=== PATIENT | female | born 1955 | race Caucasian/White ===

== ENCOUNTER 2018-04-19 09:24 | Day surgery (SDC) ==
[2018-04-19] MEDS ORDERED: LIDOCAINE 1% 20 ML MDV ID STA (09:49)
[2018-04-19] MEDS ORDERED: DIPRIVAN 20 ML VIAL IVP ONE (10:39)
--- NOTE | 2018-04-20 09:52 | OP ---
INDICATIONS FOR PROCEDURE: 62 year old female presents for colonoscopy exam. She has a history of adenomatous polyps with last colonoscopy three years ago. MEDICATIONS: SEE ANESTHESIA NOTES. PROCEDURE: COLONOSCOPY. SNARE POLYPECTOMY REPORT: The risks, benefits, alternatives and limitations were discussed in detail with the patient. Informed consent was obtained. After adequate sedation was achieved, a digital rectal exam revealed good tone, no masses. The colonoscope was introduced into the rectum and advanced under direct visual guidance to the cecum. The cecum was identified by the appendiceal orifice and IC valve. In the cecum there is a sessile 1cm polyp I removed this by snare technique. I then slowly withdrew the scope in circumferential manner and examined the mucosa quite carefully. I looked on the proximal and distal sides of the folds and flexures as best as possible. I retroflexed the scope in the right colon as well as the left colon to increase visualization. In the proximal transverse colon there is a diminutive 3-4mm polyp that I destroyed using a hot snare. In the distal transverse colon rough at 55cm there was a lobulated carpeting polyp about 11mm in size. I removed this by snare technique in one piece. There was a few small diverticuli in the sigmoid colon and no other abnormalities were noted including on retroflex view of the anal canal. The prep was good and withdraw time was 17 minutes and 0 seconds. The patient tolerated the procedure well with stable vital signs and pulse oximetry throughout. IMPRESSION: 1. 3 polyps successfully removed 2. Diverticulosis RECOMMENDATIONS: 1. High fiber diet 2. Office visit as needed 3. Await polyp pathology and if everything is benign as expected I recommend a repeat colonoscopy examination again in three years or sooner if there are signs or symptoms to indicate otherwise. CC: Dr. Chavez CRAIN
[2018-04-21 12:28] VITALS: BP 122/67; TEMP 98.6
== END 2018-04-19 12:00 | disposition home or self-care (01) ==
LOC: SURG 09:24
PROVIDERS: ATTEND Internal Medicine Gastroenterology
DX: D12.0 Benign neoplasm of cecum (principal); D12.3 Benign neoplasm of transverse colon